=== PATIENT | female | born 1940 | race Caucasian/White ===

== ENCOUNTER → 2017-03-11 | Outpatient (CLI) | payer OTHER ==
[~2017-03-11] MED LIST: CIPRO500 MG PO; EFFER-K 10 MEQ10 MEQ PO; FERROUS SULFAT325 MG PO; FLAGYL500 MG PO; FOLIC ACID 1 MG1 MG PO; GLUCOTROL 10 MG10 MG PO; HYDROCHLOROTHIA25 MG PO; JANUVIA 100 MG100 MG PO; LEVOCETIRIZINE D5 MG PO; LIPITOR TAB 1010 MG PO; NORVASC5 MG PO; OMEPRAZOLE40 MG PO; PIOGLITAZONE HC30 MG PO; SYNTHROID75 MCG PO; VITAMIN D250000 UNIT PO
== END ==
LOC: KOH-I 09:58
DX: R05 Cough (principal)
CPT/HCPCS: 71020

== ENCOUNTER → 2020-12-02 | Outpatient (CLI) | payer OTHER ==
[~2020-12-02] MED LIST changes: +ACTOS30 MG PO; +AMLODIPINE BESYL5 MG PO; +ATORVASTATIN CA10 MG PO; +DIOVAN160 MG PO; +ECOTRIN81 MG PO; +FOLIC ACID1 MG PO; +INDERAL TAB 2020 MG PO; +JANUVIA100 MG PO; +LEVOTHYROXINE75 MC1 PO; +VITAMIN C1000 MG PO
== END ==
LOC: CT 10:19
DX: K76.0 Fatty (change of) liver, not elsewhere classified (principal); R10.11 Right upper quadrant pain
CPT/HCPCS: 36415; 82565; Q9967

== ENCOUNTER → 2021-02-11 | Outpatient (CLI) | payer OTHER ==
[~2021-02-11] VITALS: Ht 144.8 cm; Wt 65.8 kg
== END ==
LOC: OPSV 11:00
DX: M81.0 Age-related osteoporosis without current pathological fracture (principal)
CPT/HCPCS: 96365; J3489

== ENCOUNTER → 2021-02-17 | Outpatient (CLI) | payer OTHER | LOC: HEART 5 07:39 | DX: I25.10 Atherosclerotic heart disease of native coronary artery without angina pectoris (principal); E78.5 Hyperlipidemia, unspecified; I67.82 Cerebral ischemia; E11.9 Type 2 diabetes mellitus without complications; R94.39 Abnormal result of other cardiovascular function study | CPT/HCPCS: 78452; A9502; J2785 ==

== ENCOUNTER → 2021-03-26 | Outpatient (CLI) | payer OTHER | LOC: KOH-I 14:18 | DX: M25.562 Pain in left knee (principal); M17.12 Unilateral primary osteoarthritis, left knee | CPT/HCPCS: 73562 ==

== ENCOUNTER → 2021-04-24 | Outpatient (CLI) | payer OTHER | LOC: KOH-I 10:20 | DX: R10.9 Unspecified abdominal pain (principal); R14.3 Flatulence | CPT/HCPCS: 74018 ==

== ENCOUNTER → 2021-05-07 | Day surgery (SDC) | payer OTHER | END | disposition home or self-care (01) | LOC: OR 06:02 | PROVIDERS: Internal Medicine Gastroenterology | PROC: 0DBP8ZX Excision of Rectum, Via Natural or Artificial Opening Endoscopic, Diagnostic (ICD-10-PCS; 2021-05-07) | PROC: 0DB68ZX Excision of Stomach, Via Natural or Artificial Opening Endoscopic, Diagnostic (ICD-10-PCS; principal; 2021-05-07 08:15) | PROC: 0DB78ZX Excision of Stomach, Pylorus, Via Natural or Artificial Opening Endoscopic, Diagnostic (ICD-10-PCS; 2021-05-07 08:15) | DX: K57.30 Diverticulosis of large intestine without perforation or abscess without bleeding (principal); K64.8 Other hemorrhoids; K64.4 Residual hemorrhoidal skin tags; K21.00 Gastro-esophageal reflux disease with esophagitis, without bleeding; K31.89 Other diseases of stomach and duodenum; K44.9 Diaphragmatic hernia without obstruction or gangrene; K25.9 Gastric ulcer, unspecified as acute or chronic, without hemorrhage or perforation; K59.09 Other constipation; K91.30 Postprocedural intestinal obstruction, unspecified as to partial versus complete; K62.89 Other specified diseases of anus and rectum; D64.9 Anemia, unspecified; R63.4 Abnormal weight loss; I10 Essential (primary) hypertension; E11.9 Type 2 diabetes mellitus without complications; E78.00 Pure hypercholesterolemia, unspecified; M19.90 Unspecified osteoarthritis, unspecified site; I25.10 Atherosclerotic heart disease of native coronary artery without angina pectoris; J44.9 Chronic obstructive pulmonary disease, unspecified; G89.29 Other chronic pain; E03.9 Hypothyroidism, unspecified; E78.5 Hyperlipidemia, unspecified; E66.01 Morbid (severe) obesity due to excess calories; Z68.31 Body mass index [BMI] 31.0-31.9, adult; Z88.6 Allergy status to analgesic agent; Z79.84 Long term (current) use of oral hypoglycemic drugs; Z79.899 Other long term (current) drug therapy; Z86.73 Personal history of transient ischemic attack (TIA), and cerebral infarction without residual deficits; Z87.891 Personal history of nicotine dependence | CPT/HCPCS: 82962; J2001; J2704; J7040 ==

== ENCOUNTER → 2021-08-28 | Outpatient (CLI) | payer OTHER | LOC: KOH-I 14:17 | DX: M79.672 Pain in left foot (principal) | CPT/HCPCS: 73650 ==

== ENCOUNTER → 2022-06-03 | Outpatient (CLI) | payer OTHER | LOC: KOH-I 13:35 | DX: R05.9 Cough, unspecified (principal); M54.9 Dorsalgia, unspecified; M47.816 Spondylosis without myelopathy or radiculopathy, lumbar region | CPT/HCPCS: 71046; 72110 ==

== ENCOUNTER → 2022-06-24 | Outpatient (CLI) | payer OTHER ==
[2022-06-24 13:44] LABS: HEMOGLOBIN 13.6 gm/dl (12.3-15.3); RED BLOOD COUNT 4.55 M/UL (4.00-5.10); WHITE BLOOD COUNT 7.9 K/UL (4.5-11.0)
[2022-06-24 14:16] LABS: BUN/CREATININE RATIO 26 (0-10)
== END ==
LOC: LAB 12:38
PROVIDERS: Physician Assistant
DX: R10.9 Unspecified abdominal pain (principal)
CPT/HCPCS: 36415; 74022; 80048; 80076; 82150; 83690; 85025